=== PATIENT | female | born 1995 | race Caucasian/White ===

== ENCOUNTER 2016-08-25 18:27 | Emergency (ER) | payer BC ==
[2016-08-25 19:05] VITALS: BP 101/70
[2016-08-25] MEDS ORDERED: Cephalexin CAP* 500 MG PO ONE (21:11)
--- NOTE | 2016-08-25 21:15 | UC ---
UC General HPI - HPI Summary HPI Summary: general malaise, mild nausea, light-headedness for past 3d. Nearly passed out yesterday. NO fever. No vomiting. No dysuria. She is 14 weeks , no complications so far. No bleeding or abd cramping - History of Current Complaint Chief Complaint: UCGeneralIllness Stated Complaint: 14 wks preg-dizziness Time Seen by Provider: 08/25/16 20:52 Hx Obtained From: Patient, Family/Medical Imaging Technologist Onset/Duration: Gradual Onset, Lasting Days - 3 Timing: Constant Onset Severity: Mild Current Severity: Mild - Allergy/Home Medications Allergies/Adverse Reactions: Allergies Allergy/AdvReac Type Severity Reaction Status Date / Time Amoxicillin Allergy Unknown Unknown Verified 08/25/16 19:05 Reaction Details Home Medications: Home Medications Vitamin TAB* 1 tab PO DAILY 08/25/16 [History Confirmed 08/25/16] PMH/Surg Hx/FS Hx/Imm Hx Previously Healthy: Yes - Surgical History Surgical History: None - Family History Known Family History: Negative: Respiratory Disease, Seizure Disorder - Social History Alcohol Use: None Substance Use Type: None Smoking Status (MU): Never Smoked Tobacco Review of Systems Constitutional: Fatigue Skin: Negative Eyes: Negative ENT: Negative Respiratory: Negative Cardiovascular: Negative Gastrointestinal: Negative Genitourinary: Negative Motor: Negative Neurovascular: Negative Musculoskeletal: Negative Neurological: Weakness Psychological: Negative All Other Systems Reviewed And Are Negative: Yes Physical Exam Triage Information Reviewed: Yes Appearance: Well-Appearing, No Pain Distress, Well-Nourished, Thin Vital Signs: Initial Vital Signs Temp 98.0 F 08/25/16 19:01 Pulse 87 08/25/16 19:01 Resp 16 08/25/16 19:01 BP 101/70 08/25/16 19:01 Pulse Ox 100 08/25/16 19:01 Vital Signs Reviewed: Yes Eye Exam: Normal ENT Exam: Normal Respiratory Exam: Normal Respiratory: Positive: Lungs clear, Normal breath sounds, No respiratory distress, No accessory muscle use Cardiovascular Exam: Normal Abdomen Description: Positive: Soft, Other: - FHT 160's. No uterine tenderness. Negative: CVA Tenderness (R), CVA Tenderness (L), Distended, Guarding Musculoskeletal Exam: Normal Neurological Exam: Normal Psychological Exam: Normal Skin Exam: Normal Diagnostics - Laboratory Diagnostic Studies Completed/Ordered: BG normal; U/A 500 leuks Course/Dx - Differential Dx - Multi-Symptom Provider Diagnoses: UTI Discharge - Discharge Plan Condition: Stable Disposition: HOME Prescriptions: Cephalexin CAP* [Keflex CAP*] 500 mg PO TID #21 cap Patient Education Materials: Urinary Tract Infection in Women (ED) Referrals: Karla Sanchez [Primary Care Provider] -
== END 2016-08-25 21:23 | disposition home or self-care (01) ==
LOC: UCCORT 18:27
DX: O23.42 Unspecified infection of urinary tract in pregnancy, second trimester (principal); Z3A.14 14 weeks gestation of pregnancy; Z88.0 Allergy status to penicillin
CPT/HCPCS: 87086; 99202; A9270-GY; G0463

== ENCOUNTER 2016-11-12 09:08 | Emergency (ER) | payer BC ==
[2016-11-12 09:19] VITALS: BP 111/69
--- NOTE | 2016-11-12 10:06 | UC ---
Respiratory Complaint HPI - HPI Summary HPI Summary: Last week this started with sinus pressure and congestion. This improved generally but now she has post nasal drip and cough. no fever. cough is non productive. NO lung disease. - History of Current Complaint Chief Complaint: UCRespiratory Stated Complaint: COUGH Time Seen by Provider: 11/12/16 09:53 Hx Obtained From: Patient Hx Last Menstrual Period: 2 1/2 WKS AGO ?: Yes Onset/Duration: Gradual Onset Timing: Constant Severity Initially: Mild Severity Currently: Mild Character: Cough: Nonproductive Associated Signs And Symptoms: Positive: URI, Nasal Congestion. Negative: Dyspnea, Fever, Chills, Pleuritic Chest Pain, Wheezing, Hemoptysis, Dizziness, Calf Pain, Calf Swelling, Edema, Sinus Discomfort - Allergies/Home Medications Allergies/Adverse Reactions: Allergies Allergy/AdvReac Type Severity Reaction Status Date / Time Amoxicillin Allergy Unknown Unknown Verified 11/12/16 09:19 Reaction Details PMH/Surg Hx/FS Hx/Imm Hx Endocrine History Of: Denies: Diabetes Respiratory History Of: Denies: COPD, Asthma - Surgical History Surgical History: None - Family History Known Family History: Negative: Respiratory Disease, Seizure Disorder - Social History Alcohol Use: None Substance Use Type: None Smoking Status (MU): Never Smoked Tobacco Review of Systems All Other Systems Reviewed And Are Negative: Yes Physical Exam Triage Information Reviewed: Yes Appearance: Well-Appearing - she is smiling, pleasant and comfortable appearing. , No Pain Distress, Well-Nourished Vital Signs: Initial Vital Signs Temp 98.6 F 11/12/16 09:12 Pulse 109 11/12/16 09:12 Resp 16 11/12/16 09:12 BP 111/69 11/12/16 09:12 Pulse Ox 100 11/12/16 09:12 Vital Signs Reviewed: Yes Eye Exam: Normal Eyes: Positive: Conjunctiva Clear. Negative: Conjunctiva Inflamed ENT Exam: Normal ENT: Positive: Normal ENT inspection, Hearing grossly normal, Pharynx normal, Nasal congestion, Nasal drainage, TMs normal. Negative: Pharyngeal erythema, TM bulging, TM dull, TM red, Tonsillar swelling, Tonsillar exudate, Trismus Neck exam: Normal Neck: Positive: Supple, Nontender, No Lymphadenopathy. Negative: Nuchal Rigidity Respiratory Exam: Normal Respiratory: Positive: Chest non-tender, Lungs clear, Normal breath sounds, No respiratory distress, No accessory muscle use. Negative: Respiratory distress, Decreased breath sounds, Accessory muscle use, Crackles, Rhonchi, Stridor, Wheezing Cardiovascular Exam: Normal Cardiovascular: Positive: RRR, No Murmur, Pulses Normal - triage HR elevated but my HR when she was at rest sitting was 90. Abdominal Exam: Normal Abdomen Description: Positive: Nontender, Soft. Negative: CVA Tenderness (R), CVA Tenderness (L), Guarding Musculoskeletal: Positive: Strength Intact, ROM Intact, No Edema Neurological Exam: Normal Neurological: Positive: Alert, Muscle Tone Normal. Negative: Fatigued Psychological Exam: Normal Skin Exam: Normal Skin: Negative: rashes UC Diagnostic Evaluation - Laboratory O2 Sat by Pulse Oximetry: 100 Respiratory Course/Dx - Course Course Of Treatment: one week of symptoms and no fever or myalgias. this is not consistent with influenza and generally she states she feels better now. - Differential Dx/Diagnosis Differential Diagnosis/HQI/PQRI: Airway Obstruction, Foreign Body, Aspiration, Asthma, Bronchitis, CHF, Pulmonary Edema, Exacerbation Of COPD, Influenza, Laryngitis, Lower Resp Infection, VRE, Pneumothorax, Pulmonary Embolism, Tuberculosis Provider Diagnoses: post nasal drip. uri. Discharge - Discharge Plan Condition: Good Disposition: HOME Patient Education Materials: Upper Respiratory Infection (ED) Referrals: Karla Sanchez [Primary Care Provider] - If Needed
== END 2016-11-12 10:11 | disposition home or self-care (01) ==
LOC: UCCORT 09:08
DX: R09.82 Postnasal drip (principal); J06.9 Acute upper respiratory infection, unspecified; Z88.1 Allergy status to other antibiotic agents
CPT/HCPCS: 99212; G0463

== ENCOUNTER 2017-06-25 07:15 | Emergency (ER) | payer BC ==
--- NOTE | 2017-06-25 07:23 | UC ---
Abdominal Pain Female HPI - HPI Summary HPI Summary: 22 YEAR OLD FEMALE PRESENTS WITH COMPLAINS OF NAUSEA, VOMITING, AND DIARRHEA SINCE TUESDAY. - History of Current Complaint Stated Complaint: VOMITING Time Seen by Provider: 06/25/17 07:22 Hx Obtained From: Patient Hx Last Menstrual Period: 2 1/2 WKS AGO Onset/Duration: Sudden Onset Severity Initially: Moderate Severity Currently: Moderate Allergies/Adverse Reactions: Allergies Allergy/AdvReac Type Severity Reaction Status Date / Time Amoxicillin Allergy Unknown Unknown Verified 06/25/17 07:25 Reaction Details Home Medications: Home Medications NK [No Home Medications Reported] 06/25/17 [History Confirmed 06/25/17] PMH/Surg Hx/FS Hx/Imm Hx Previously Healthy: Yes - Surgical History Surgical History: None - Family History Known Family History: Negative: Respiratory Disease, Seizure Disorder - Social History Alcohol Use: None Substance Use Type: None Smoking Status (MU): Never Smoked Tobacco Review of Systems Constitutional: Negative Skin: Negative Eyes: Negative ENT: Negative Respiratory: Negative Cardiovascular: Negative Gastrointestinal: Vomiting, Diarrhea, Nausea Genitourinary: Negative Motor: Negative Neurovascular: Negative Musculoskeletal: Negative Neurological: Negative Psychological: Negative All Other Systems Reviewed And Are Negative: Yes Physical Exam Triage Information Reviewed: Yes Vital Signs Reviewed: Yes Eye Exam: Normal ENT Exam: Normal Dental Exam: Normal Neck exam: Normal Neck: Positive: 1 Respiratory Exam: Normal Cardiovascular Exam: Normal Musculoskeletal Exam: Normal Neurological Exam: Normal Psychological Exam: Normal Skin Exam: Normal Abd Pain Female Course/Dx - Differential Dx/Diagnosis Provider Diagnoses: NAUSEA. VOMITTING. DIARRHEA Discharge - Discharge Plan Condition: Stable Disposition: OTHER Discharge Disposition Comment: PATIENT SUGGESTED TO GO TO THE ER Forms: *Work Release Referrals: Karla Sanchez [Primary Care Provider] - Additional Instructions: PATIENT SUGGESTED TO GO TO THE ER FOR WORSEING VOMITTING AND DIARRHEA
[2017-06-25 07:32] VITALS: BP 105/72
== END 2017-06-25 07:54 ==
LOC: UCCORT 07:15
DX: R11.2 Nausea with vomiting, unspecified (principal); R19.7 Diarrhea, unspecified
CPT/HCPCS: 81003; 87086; 99212; G0463